=== PATIENT | female | born 1980 | race Two or more races ===

== ENCOUNTER 2018-12-23 21:10 | Emergency (ER) | payer OTHER ==
[~2018-12-23] VITALS: Ht 152.4 cm; Wt 93.4 kg
[2018-12-24 01:09] VITALS: BP 141/83
[2018-12-24] MEDS ORDERED: ACETAMINOPHEN/CODEINE#3 (300/30mg) TAB PO ONE (01:30)
[2018-12-24] MEDS ORDERED: methylPREDNISolone SOD SUCC 125 MG/2 ML VL IM ONE (01:30)
== END 2018-12-24 02:57 | disposition home or self-care (01) ==
LOC: ER 21:10
DX: J40 Bronchitis, not specified as acute or chronic (principal)

== ENCOUNTER 2019-01-16 20:37 | Emergency (ER) | payer OTHER ==
[~2019-01-16] VITALS: Ht 152.4 cm; Wt 90.7 kg
[2019-01-17 06:37] VITALS: BP 129/78
== END 2019-01-17 07:05 | disposition home or self-care (01) ==
LOC: ER 20:40
DX: J20.9 Acute bronchitis, unspecified (principal)
CPT/HCPCS: 71045